=== PATIENT | female | born 1980 | race Caucasian/White ===

== ENCOUNTER 2021-11-20 20:28 | Emergency (ER) | payer OTHER ==
[~2021-11-20] VITALS: Ht 190.5 cm; Wt 113.6 kg
[2021-11-20 20:34] VITALS: TEMP 97.6
[2021-11-20 21:15] LABS: COLLECTION METHOD CLEAN CATCH
[2021-11-20 21:21] LABS: BASO # 0.1 K/mm3 (0.0-0.2); BASO % 0.6 % (0.0-2.0); EOS # 0.4 K/mm3 (0.0-0.7); EOS % 3.5 % (0.0-4.0); GRAN # 6.2 K/mm3 (1.4-6.5); GRAN % 58.9 % (42.2-75.2); HEMOGLOBIN 14.4 g/dl (12.5-16.0); LYMPH % 28.2 % (20.0-51.0); MEAN CELL VOLUME 88 fl (80.0-100.0); MEAN CORPUSCULAR HEMOGLOBIN 29 pg (27-31); MEAN CORPUSCULAR HGB CONC 33 g/dl (33.0-37.0); MEAN PLATELET VOLUME 10.2 fl (7.4-10.4); MONO # 0.9 K/mm3 (0.1-0.6); MONO % 8.4 % (1.7-9.3); PLATELET COUNT 338 K/mm3 (130-400); REDCELL DISTRIBUTION WIDTH-CV 13.2 % (11.5-14.5)
[2021-11-20 21:22] LABS: PH 6 (5-8); SQUAMOUS EPITHELIAL 0-2 /hpf (0-10); URINE APPEARANCE Clear (CLEAR/HAZY); URINE BACTERIA Rare /hpf (NONE SEEN); URINE BILIRUBIN Negative (NEGATIVE); URINE BLOOD 1+ (NEGATIVE); URINE COLOR Straw (YELLOW); URINE GLUCOSE Negative (NEGATIVE); URINE KETONE Negative (NEGATIVE); URINE LEUKOCYTE ESTERASE Negative (NEGATIVE); URINE NITRATE Negative (NEGATIVE); URINE PROTEIN(semi-quant) Negative (NEGATIVE); URINE RBC 0-2 /hpf (0-2); URINE UROBILINOGEN Negative (NEGATIVE)
[2021-11-20 21:35] LABS: ALBUMIN 3.7 gm/dL (3.5-5.0); BILIRUBIN,TOTAL 0.3 mg/dL (0.2-1.2); CREATININE, serum 0.78 mg/dL (0.57-1.11); POTASSIUM 3.9 mmol/L (3.5-4.5); TOTAL PROTEIN 7.8 gm/dL (6.2-8.1)
[2021-11-20] MEDS ORDERED: PRILOSEC 20MG20 MG PO (23:04)
[2021-11-20 23:14] VITALS: BP 138/83; PULSE 67
== END 2021-11-20 23:14 | disposition home or self-care (01) ==
LOC: COL.ER 20:28
PROVIDERS: Emergency Medicine
DX: R42 Dizziness and giddiness (principal); R10.13 Epigastric pain; R91.1 Solitary pulmonary nodule; R31.9 Hematuria, unspecified; Z28.310 Unvaccinated for COVID-19
CPT/HCPCS: J1885; J2405; J7030